=== PATIENT | female | born 1995 | race Caucasian/White ===

== ENCOUNTER 2022-02-08 11:54 | Outpatient (CLI) | payer BC ==
[2022-02-09 12:13] LABS: SARS-CoV-2 PCR by NAA Not Detected (NotDetected)
== END 2022-02-08 11:55 | disposition home or self-care (01) ==
LOC: CSHLAB 11:54
PROVIDERS: ATTEND Obstetrics & Gynecology
DX: Z20.822 Contact with and (suspected) exposure to COVID-19 (principal)
CPT/HCPCS: U0003; U0005

== ENCOUNTER 2022-02-10 06:03 | Inpatient (IN) | payer BC ==
[2022-02-10] MEDS ORDERED: Misoprostol 200 MCG TAB PR PRN (06:27)
[2022-02-10] MEDS ORDERED: Ibuprofen 800 MG TAB PO PRN (06:27)
[2022-02-10] MEDS ORDERED: Promethazine HCl 25 MG/ML VIAL IM PRN ×2 (06:27→10:45)
[2022-02-10] MEDS ORDERED: NS w/ Oxytocin 30 units 500 ML IV SCH ×3 (06:27→13:45)
[2022-02-10] MEDS ORDERED: hydrALAZINE 20 MG/ML VIAL SLOW IVP PRN ×2 (06:27→13:31)
[2022-02-10] MEDS ORDERED: Docusate 100 MG CAP PO PRN (06:27)
[2022-02-10] MEDS ORDERED: HYDROcodone/Acetaminophen 5/325 mg Tablet PO PRN ×4 (06:27→13:31)
[2022-02-10] MEDS ORDERED: Ondansetron PF 4 MG/2 ML Vial IVP PRN ×3 (06:27→13:31)
[2022-02-10] MEDS ORDERED: Butorphanol Tartrate 1 MG/ML VIAL SLOW IVP PRN (06:27)
[2022-02-10] MEDS ORDERED: Acetaminophen 500 MG TAB PO PRN (06:27)
[2022-02-10] MEDS ORDERED: Lidocaine 1% (PF) 30 ML VIAL SC PRN (06:27)
[2022-02-10] MEDS ORDERED: Diphenoxylate HCl/Atropine Tablet PO PRN ×2 (06:27)
[2022-02-10] MEDS ORDERED: Lactated Ringer's 1,000 ML IV SCH (06:27)
[2022-02-10 06:46] VITALS: BMI 35.1
[2022-02-10 07:08] LABS: Hemoglobin 12.1 g/dL (12.0-15.5); Mean Corpuscular HGB CONC 34.8 g/dL (32.0-36.0); Mean Corpuscular Hemoglobin 31.1 pg (27.0-33.0); Mean Corpuscular Volume 89.5 fl (81.6-98.3); Mean Platelet Volume 11.2 fl (7.4-10.4); Platelet Count 267 10x3/uL (150-450); RBC Distribution Width 13.2 % (11.5-14.5); Red Blood Cell (RBC) Count 3.89 10x6/uL (3.90-5.03); White Blood Cell (WBC) Count 11.1 10x3/uL (3.5-10.5)
[2022-02-10 07:42] LABS: HIV (1/2) Antibody/Antigen Non-Reactive (NonReactive); HIV 1/2 INDEX 0.05 S/CO (<1.00); Hep B Surf Ag Non-Reactive S/CO (NonReactive); Syphilis Antibody Nonreactive (Nonreactive); Syphilis Antibody Index 0.07 S/CO (<1.00 Non-Reactive)
[2022-02-10 07:53] LABS: HBSAg Index 0.21 S/CO (0-0.99)
[2022-02-10] MEDS ORDERED: Bupivacaine 0.25% HCL 30 ML VIAL ONE (08:00)
[2022-02-10] MEDS ORDERED: Fentanyl 2 mcg/Bup 0.1% Cadd 100 ML ONE (09:20)
[2022-02-10] MEDS ORDERED: Hydrocerin (Eucerin) Cream 120 gm Jar TOP PRN (10:45)
[2022-02-10] MEDS ORDERED: diphenhydrAMINE 50 MG/ML VIAL IVP PRN (10:45)
[2022-02-10] MEDS ORDERED: Acetaminophen 325 MG TAB PO PRN (10:45)
[2022-02-10] MEDS ORDERED: Naloxone HCl 0.4 mg/ml Vial IVP PRN ×2 (10:45)
[2022-02-10] MEDS ORDERED: ePHEDrine Sulfate 50 MG/10 ML VIAL SLOW IVP PRN (10:45)
[2022-02-10] MEDS ORDERED: Communication Order-Pharmacy FS SCH (10:45)
[2022-02-10] MEDS ORDERED: Fentanyl 2 mcg/Bupivacaine 0.1% Cassette 100 ML EPIDURAL SCH (10:45)
[2022-02-10] MEDS ORDERED: Lactated Ringer's 500 ML IV PRN (10:45)
[2022-02-10] MEDS ORDERED: Bisacodyl 10 MG SUPP PR PRN (13:31)
[2022-02-10] MEDS ORDERED: Lanolin Ointment 7 GM TUBE TOP PRN (13:31)
[2022-02-10] MEDS ORDERED: Preparation H Ointment 28 GM TUBE PR PRN (13:31)
[2022-02-10] MEDS ORDERED: Zolpidem Tartrate 5 MG TAB PO PRN (13:31)
[2022-02-10] MEDS ORDERED: diphenhydrAMINE 25 MG CAP PO PRN (13:31)
[2022-02-10] MEDS ORDERED: Misoprostol 200 MCG TAB VAG PRN (13:31)
[2022-02-10] MEDS ORDERED: Milk Of Magnesia 30 ML UDCUP PO PRN (13:31)
[2022-02-10] MEDS ORDERED: Boostrix 0.5 ML (Tdap) VIAL IM ONE (13:31)
[2022-02-10] MEDS ORDERED: Witch Hazel-Glycerin 1 EACH JAR TOP PRN (13:33)
[2022-02-10] MEDS: Ibuprofen 800 MG TAB PO SCH ×2 (17:15→21:55)
[2022-02-10] MEDS: Ferrous Sulfate 325 MG TAB PO SCH (17:15)
[2022-02-10] MEDS: Docusate 100 MG CAP PO SCH (21:54)
[2022-02-11 04:45] LABS: Hemoglobin 10.6 g/dL (12.0-15.5); Mean Corpuscular HGB CONC 34.6 g/dL (32.0-36.0); Mean Corpuscular Hemoglobin 31.2 pg (27.0-33.0); Mean Platelet Volume 11.4 fl (7.4-10.4); Platelet Count 233 10x3/uL (150-450); RBC Distribution Width 13.2 % (11.5-14.5); White Blood Cell (WBC) Count 13.4 10x3/uL (3.5-10.5)
[2022-02-11] MEDS: Ibuprofen 800 MG TAB PO SCH ×2 (05:27→14:03)
[2022-02-11] MEDS: Ferrous Sulfate 325 MG TAB PO SCH (08:30)
[2022-02-11] MEDS: Docusate 100 MG CAP PO SCH (08:31)
[2022-02-11] MEDS ORDERED: Prenatal Vitamin 1 TAB PO SCH (09:00)
[2022-02-11 11:47] VITALS: BP 109/57; TEMP 97.6
== END 2022-02-11 16:45 | disposition home or self-care (01) | DRG 807 ==
LOC: CSHLD 06:03 → CSHPP 16:00
PROVIDERS: ADMIT Obstetrics & Gynecology; ATTEND Obstetrics & Gynecology
PROC: 10E0XZZ Delivery of Products of Conception, External Approach (ICD-10-PCS; principal; 2022-02-10)
PROC: 10907ZC Drainage of Amniotic Fluid, Therapeutic from Products of Conception, Via Natural or Artificial Opening (ICD-10-PCS; 2022-02-10)
PROC: 0HQ9XZZ Repair Perineum Skin, External Approach (ICD-10-PCS; 2022-02-10)
PROC: 3E033VJ Introduction of Other Hormone into Peripheral Vein, Percutaneous Approach (ICD-10-PCS; 2022-02-10)
DX: O99.354 Diseases of the nervous system complicating childbirth (principal); Z37.0 Single live birth; O76 Abnormality in fetal heart rate and rhythm complicating labor and delivery; G43.909 Migraine, unspecified, not intractable, without status migrainosus; Z3A.39 39 weeks gestation of pregnancy; Z87.440 Personal history of urinary (tract) infections; Z79.899 Other long term (current) drug therapy; O70.0 First degree perineal laceration during delivery
CPT/HCPCS: 36415; 51702; 85027; 86780; 86850; 86900; 86901; 87340; 87389; J2590; S0020